=== PATIENT | female | born 1955 | race Caucasian/White ===

== ENCOUNTER 2019-10-27 05:52 | Day surgery (SDC) | payer OTHER ==
[~2019-10-27 05:52] MED LIST: DIPRIVAN 200 MG/20 ML IV ONE
[2019-10-27] MEDS ORDERED: Lactated Ringers 1,000 ML IV SCH (06:30)
--- NOTE | 2019-10-27 09:06 | OP ---
SURGERY DATE/TIME: 10/27/2019 0755 PREOPERATIVE DIAGNOSIS: Screening exam. POSTOPERATIVE DIAGNOSIS: Normal colon. PROCEDURE: Colonoscopy. SURGEON: Dr. Hernandez. ANESTHESIA: Medications given by anesthesia department. HISTORY: The patient is a 63 year old white female presenting now for her first screening colonoscopy. She was appraised of the risks of the procedure including the risk of perforation, phlebitis, untoward reaction to medication, bleeding and missed lesions. The patient verbalized her understanding and desired to have the procedure performed. DESCRIPTION OF PROCEDURE: The patient was given the medications by the anesthesia department. She had continuous pulse oximetry, ECG monitoring, intermittent blood pressure monitoring and tidal CO2 monitoring during the examination. She was placed in the left lateral decubitus position. A digital rectal examination was performed and revealed normal anal sphincter tone and no masses. The flexible Olympus pediatric colonoscope was used to intubate the rectum. A view of the colon was developed sequentially to the cecum. Upon insertion and withdrawal, including a retroflex view in the rectum, no mucosal lesions were encountered. The scope was removed from the patient who tolerated the procedure well and was sent back to OP recovery in good condition. The prep was noted to be fair to good with just occasional liquid stool noted in the right colon.
[2019-10-27 09:10] VITALS: O2SAT 97
[2019-10-27 09:12] VITALS: BP 92/56; PULSE 70
== END 2019-10-27 09:29 | disposition home or self-care (01) ==
LOC: SDC 05:52
PROVIDERS: ATTEND Family Medicine
DX: Z12.11 Encounter for screening for malignant neoplasm of colon (principal)
CPT/HCPCS: J2704

== ENCOUNTER 2021-07-02 13:35 | Day surgery (SDC) | payer OTHER ==
[2021-07-02] MEDS ORDERED: Marcaine Mpf 0.5% Vial 30 Ml IJ ONE (13:36)
[2021-07-02] MEDS ORDERED: Xylocaine 1% Vial 30 ML PF IJ ONE (13:36)
[2021-07-02] MEDS ORDERED: DIPRIVAN 200 MG/20 ML IV ONE (16:13)
[2021-07-02] MEDS ORDERED: Lactated Ringers 1,000 ML IV ONE (17:10)
--- NOTE | 2021-07-02 19:49 | XRAY ---
Indication: Left lumbar sympathetic nerve block. Intraoperative fluoroscopy provided for 19 seconds. 3 digital spot image submitted for interpretation demonstrates left posterior needle tip projecting just anterior to L2 segment. Small amount of contrast injected for needle tip placement. Correlate with intraoperative findings/report.
--- NOTE | 2021-07-03 08:46 | XRAY ---
19 seconds fluoroscopy time in surgery for left lumbar sympathetic nerve block.
== END 2021-07-02 16:25 | disposition home or self-care (01) ==
LOC: SDC-PAIN 13:35
PROVIDERS: ATTEND Psychiatry & Neurology Pain Medicine
DX: G90.522 Complex regional pain syndrome I of left lower limb (principal); Z79.899 Other long term (current) drug therapy
CPT/HCPCS: 01952; 64520; 72100; 77002; 77003; J2001; J2704; Q9966

== ENCOUNTER 2022-04-29 11:27 | Day surgery (SDC) | payer OTHER ==
[2022-04-29] MEDS ORDERED: LIDOCAINE HCL 1% 50 MG/5 ML VL PF IJ ONE (11:28)
[2022-04-29] MEDS ORDERED: Sensorcaine 0.25% 10 ML IJ ONE (11:28)
[2022-04-29] MEDS ORDERED: DIPRIVAN 200 MG/20 ML IV ONE (13:49)
[2022-04-29] MEDS ORDERED: Lactated Ringers 1,000 ML IV ONE (15:29)
--- NOTE | 2022-04-29 16:33 | XRAY ---
Indication: Left lumbar sympathetic nerve block. Intraoperative fluoroscopy provided for 28 seconds. 2 digital spot image submitted for interpretation demonstrates left posterior needle tip projecting just anterior to L3-L4 interspace. Small amount of contrast injected for needle tip placement. Correlate with intraoperative findings/report.
--- NOTE | 2022-04-29 16:49 | XRAY ---
28 seconds of fluoroscopy was used in surgery for a left lumbar sympathetic nerve block.
== END 2022-04-29 14:20 | disposition home or self-care (01) ==
LOC: SDC-PAIN 11:27
PROVIDERS: ATTEND Psychiatry & Neurology Pain Medicine
DX: G90.522 Complex regional pain syndrome I of left lower limb (principal); Z79.899 Other long term (current) drug therapy
CPT/HCPCS: 64520; 72100; 77002; J2001; J2704; Q9966

== ENCOUNTER 2023-01-14 10:15 | Day surgery (SDC) | payer OTHER ==
[2023-01-14] MEDS ORDERED: Sensorcaine 0.25% 10 ML IJ ONE (10:16)
[2023-01-14] MEDS ORDERED: XYLOCAINE-MPF 1% 5ML SDV IJ ONE (10:16)
[2023-01-14] MEDS ORDERED: DIPRIVAN 200 MG/20 ML IV ONE (11:20)
--- NOTE | 2023-01-14 12:34 | XRAY ---
Indication: Left lumbar sympathetic nerve block. Intraoperative fluoroscopy provided for 40 seconds. 5 digital spot image submitted for interpretation demonstrates left posterior needle tip projecting anterior to L2. Small amount of contrast injected for needle placement. Correlate with intraoperative findings/report.
[2023-01-14] MEDS ORDERED: Lactated Ringers 1,000 ML IV ONE (15:24)
--- NOTE | 2023-01-15 10:59 | XRAY ---
40 seconds of fluoroscopy was used in surgery for a left lumbar sympathetic nerve block.
== END 2023-01-14 11:55 | disposition home or self-care (01) ==
LOC: SDC-PAIN 10:15
PROVIDERS: ATTEND Psychiatry & Neurology Pain Medicine
DX: G90.522 Complex regional pain syndrome I of left lower limb (principal)
CPT/HCPCS: 64520; 72100; 77002; J2704; Q9966

== ENCOUNTER 2023-02-17 07:17 | Day surgery (SDC) | payer OTHER ==
[2023-02-17] MEDS ORDERED: XYLOCAINE-MPF 1% 5ML SDV IJ ONE (07:18)
[2023-02-17] MEDS ORDERED: Sensorcaine 0.25% 10 ML IJ ONE (07:18)
[2023-02-17] MEDS ORDERED: DIPRIVAN 200 MG/20 ML IV ONE (09:22)
[2023-02-17] MEDS ORDERED: Lactated Ringers 1,000 ML IV ONE (10:41)
--- NOTE | 2023-02-17 10:59 | XRAY ---
Indication: Left lumbar sympathetic nerve block. Intraoperative fluoroscopy provided for 1 minute 9 seconds. 4 digital spot images submitted for interpretation demonstrates left posterior needle tip projecting just anterior to L2. Small amount of contrast injected for needle tip placement. Correlate with intraoperative findings/report.
--- NOTE | 2023-02-17 12:32 | XRAY ---
One minute and 9 seconds of fluoroscopy was used in surgery for a left lumbar sympathetic nerve block.
== END 2023-02-17 09:58 | disposition home or self-care (01) ==
LOC: SDC-PAIN 07:17
PROVIDERS: ATTEND Psychiatry & Neurology Pain Medicine
DX: G90.522 Complex regional pain syndrome I of left lower limb (principal)
CPT/HCPCS: 64520; 72100; 77002; 77003; J2704; Q9966

== ENCOUNTER 2023-06-17 08:05 | Emergency (ER) | payer OTHER ==
[2023-06-17 08:19] VITALS: TEMP 97.2
--- NOTE | 2023-06-17 08:29 | ERPHSYRPT ---
- History of Present Illness Time Seen by Provider: 06/17/23 08:20 Patient Subjective Stated Complaint: PT states "I was just standing there and had a sudden burning in my chest and it went up into my neck." Triage Nursing Assessment: PT presented alert and oriented X 3, skin pwd. PT ambulates with an upright steady gait, able to speak in clear full sentences. PT resting comfortably on the bed. Physician History: 67 years old fairly healthy female presented in the ER with sudden onset substernal chest pain almost 15 minutes prior to arrival with radiation to the neck, dull aching to burning sensation without any significant aggravating or relieving factors and improved on its own after 10 minutes and currently having no symptoms. Patient reports having similar symptoms in the past which get better with taking Tums but never had pain in the neck/jaw area. No difficulty breathing. No recent fever or chills reported. Aspirin Treatment Today: unknown Allergies/Adverse Reactions: morphine Allergy (Severe, Verified 10/27/19 06:14) Shortness of Breath "thought i was dying, my resp. was so bad" codeine Allergy (Mild, Verified 10/27/19 06:14) Hives Home Medications: Desloratadine [Clarinex] 5 mg PO DAILY 10/18/19 [History] Famotidine 20 mg [Pepcid 20 MG] 20 mg PO DAILY 10/18/19 [History] Gabapentin [Neurontin] 300 mg PO TID 10/18/19 [History] Nortriptyline HCl [Pamelor] 10 mg PO HS 10/18/19 [History] Pantoprazole Sodium [Protonix] 40 mg PO DAILY 10/18/19 [History] Hx Tetanus, Diphtheria Vaccination/Date Given: No Hx Influenza Vaccination/Date Given: Yes Hx Pneumococcal Vaccination/Date Given: No Immunizations Up to Date: No Travel Risk - International Travel Have you traveled outside of the country in past 3 weeks: No - Emerging Infectious Disease Are you exhibiting symptoms associated with any current EIDs: No - Review of Systems Constitutional: No Symptoms Eyes: No Symptoms Ears, Nose, & Throat: No Symptoms Respiratory: No Symptoms Cardiac: Chest Pain Abdominal/Gastrointestinal: No Symptoms Genitourinary Symptoms: No Symptoms Musculoskeletal: No Symptoms Skin: No Symptoms Neurological: No Symptoms Psychological: No Symptoms Endocrine: No Symptoms Hematologic/Lymphatic: No Symptoms Immunological/Allergic: No Symptoms - Past Medical History Pertinent Past Medical History: Yes Neurological History: Peripheral Neuropathy, Other ENT History: No Pertinent History Cardiac History: No Pertinent History Respiratory History: No Pertinent History Endocrine Medical History: No Pertinent History Musculoskeletal History: No Pertinent History GI Medical History: GERD History: No Pertinent History Psycho-Social History: No Pertinent History Female Reproductive Disorders: No Pertinent History Other Medical History: Burning mouth disease. Burning foot disease - Past Surgical History Past Surgical History: Yes Neuro Surgical History: No Pertinent History Cardiac: No Pertinent History Respiratory: No Pertinent History Gastrointestinal: No Pertinent History Genitourinary: No Pertinent History Musculoskeletal: No Pertinent History Female Surgical History: Other Other Surgical History: ovary removed - Social History Smoking Status: Never smoker Exposure to second hand smoke: No Drug Use: none - Nursing Vital Signs Nursing Vital Signs: Initial Vital Signs Temperature 97.2 F 06/17/23 08:13 Pulse Rate 78 06/17/23 08:13 Respiratory Rate 20 06/17/23 08:13 Blood Pressure 158/98 06/17/23 08:13 O2 Sat by Pulse Oximetry 100 06/17/23 08:13 Pain Scale Pain Intensity 0 - Physical Exam General Appearance: no apparent distress, alert Eye Exam: PERRL/EOMI Ears, Nose, Throat Exam: normal ENT inspection, TMs normal, pharynx normal, moist mucous membranes Neck Exam: normal inspection, non-tender, supple, full range of motion Respiratory Exam: normal breath sounds, lungs clear, No chest tenderness Cardiovascular Exam: regular rate/rhythm, normal heart sounds Gastrointestinal/Abdomen Exam: soft, normal bowel sounds, No tenderness Back Exam: normal inspection, normal range of motion Extremity Exam: normal inspection, normal range of motion Neurologic Exam: alert, oriented x 3, cooperative, director industrial II-XII nml as tested Skin Exam: normal color SpO2 Interpretation: normal SpO2: 100 O2 Delivery: Room Air - Course EKG Interpreted by Me: RATE (79), Sinus Rhythm, Left [place] Deviation, LAFB, NORMAL INTERVALS Ordered Tests: Active Orders 24 hr Category Date Time Status Channel Process Plant Operator STAT Care 06/17/23 08:28 Completed EKG-ER Only STAT Care 06/17/23 08:28 Completed IV Insertion STAT Care 06/17/23 08:28 Completed CHEST 1 VIEW (PORTABLE) Stat Exams 06/17/23 08:28 Completed CBC W DIFF Stat Lab 06/17/23 08:36 Completed CMP Stat Lab 06/17/23 08:36 Completed D-DIMER QUANTITATIVE Stat Lab 06/17/23 08:36 Completed NT PRO BNPII Stat Lab 06/17/23 08:36 Completed TROPONIN Q4H Lab 06/17/23 08:36 Completed TROPONIN Q4H Lab 06/17/23 10:35 Completed Medication Summary Discontinued Medications Generic Name Dose Route Start Last Admin Trade Name Davidq PRN Reason Stop Dose Admin Aspirin 324 mg 06/17/23 08:28 06/17/23 08:45 Aspirin 81 Mg Tab.Chew PO 06/17/23 08:29 324 mg STAT ONE Administration Aspirin Confirm 06/17/23 08:43 Aspirin 81 Mg Tab.Chew Administered 06/17/23 08:44 Dose 324 mg .ROUTE .STSocMetrics-MED ONE Lab/Rad Data: Laboratory Result Diagrams 06/17/23 08:36 06/17/23 08:36 Laboratory Results 06/17/23 06/17/23 06/17/23 Range/Units 10:35 08:36 08:36 WBC (4.0-10.5) x10^3/uL RBC (4.1-5.4) x10^6/uL Hgb (12.0-16.0) g/dL Hct (35-47) % MCV (78-100) fL MCH (26-32) pg MCHC (32-36) g/dL RDW (11.5-14.0) % Plt Count (150-450) x10^3/uL MPV (7.5-11.0) fL Gran % (36.0-66.0) % Immature Gran % (Auto) (0.00-0.4) % Nucleat RBC Rel Count (0.00-0.1) % Eos # (Auto) (0-0.5) x10^3/uL Immature Gran # (Auto) (0.00-0.03) x10^3u/L Absolute Lymphs (auto) (1.0-4.6) x10^3/uL Absolute Monos (auto) (0.0-1.3) x10^3/uL Absolute Nucleated RBC (0.00-0.01) x10^3u/L Lymphocytes % (24.0-44.0) % Monocytes % (0.0-12.0) % Eosinophils % (0.00-5.0) % Basophils % (0.0-0.4) % Absolute Granulocytes (1.4-6.9) x10^3/uL Basophils # (0-0.4) x10^3/uL D-Dimer 0.33 (0.0-0.50) mg/L Sodium (135-145) mmol/L Potassium (3.5-5.1) mmol/L Chloride (98-107) mmol/L Carbon Dioxide (22-30) mmol/L Anion Gap (5-15) MEQ/L BUN (7-17) mg/dL Creatinine (0.52-1.04) mg/dL Estimated GFR ML/MIN Glucose (74-106) mg/dL Calcium (8.4-10.2) mg/dL Total Bilirubin (0.2-1.3) mg/dL AST (14-36) U/L ALT (0-35) U/L Alkaline Phosphatase (38-126) U/L Troponin I < 0.012 < 0.012 (0.000-0.033) ng/mL NT-Pro-B Natriuret Pep < 20.0 (<300) pg/mL Serum Total Protein (6.3-8.2) g/dL Albumin (3.5-5.0) g/dL 06/17/23 06/17/23 Range/Units 08:36 08:36 WBC 6.9 (4.0-10.5) x10^3/uL RBC 4.44 (4.1-5.4) x10^6/uL Hgb 11.2 L (12.0-16.0) g/dL Hct 35.9 (35-47) % MCV 80.9 (78-100) fL MCH 25.2 L (26-32) pg MCHC 31.2 L (32-36) g/dL RDW 19.5 H (11.5-14.0) % Plt Count 341 (150-450) x10^3/uL MPV 9.6 (7.5-11.0) fL Gran % 49.6 (36.0-66.0) % Immature Gran % (Auto) 0.1 (0.00-0.4) % Nucleat RBC Rel Count 0.0 (0.00-0.1) % Eos # (Auto) 0.21 (0-0.5) x10^3/uL Immature Gran # (Auto) 0.01 (0.00-0.03) x10^3u/L Absolute Lymphs (auto) 2.55 (1.0-4.6) x10^3/uL Absolute Monos (auto) 0.66 (0.0-1.3) x10^3/uL Absolute Nucleated RBC 0.00 (0.00-0.01) x10^3u/L Lymphocytes % 37.2 (24.0-44.0) % Monocytes % 9.6 (0.0-12.0) % Eosinophils % 3.1 (0.00-5.0) % Basophils % 0.4 (0.0-0.4) % Absolute Granulocytes 3.39 (1.4-6.9) x10^3/uL Basophils # 0.03 (0-0.4) x10^3/uL D-Dimer (0.0-0.50) mg/L Sodium 140 (135-145) mmol/L Potassium 4.0 (3.5-5.1) mmol/L Chloride 105 (98-107) mmol/L Carbon Dioxide 28 (22-30) mmol/L Anion Gap 11.2 (5-15) MEQ/L BUN 15 (7-17) mg/dL Creatinine 0.95 (0.52-1.04) mg/dL Estimated GFR 66.1 ML/MIN Glucose 108 H (74-106) mg/dL Calcium 9.5 (8.4-10.2) mg/dL Total Bilirubin 0.40 (0.2-1.3) mg/dL AST 30 (14-36) U/L ALT 20 (0-35) U/L Alkaline Phosphatase 68 (38-126) U/L Troponin I (0.000-0.033) ng/mL NT-Pro-B Natriuret Pep (<300) pg/mL Serum Total Protein 7.9 (6.3-8.2) g/dL Albumin 4.8 (3.5-5.0) g/dL - Progress Progress: improved, re-examined Air Movement: good Progress Note: 06/17/23 11:37 67 years old is evaluated for chest pain for 10 minutes in the substernal area with some radiation to the neck/jaw which improved prior to arrival in the ER. Patient remained chest pain-free throughout her stay in the ER. EKG is normal sinus rhythm with no acute ischemic changes. She has negative troponins x 2. Negative D-dimers. Chest x-ray negative for any acute cardiopulmonary findings. I have shared the results of workup with patient. She is low heart score, recommended outpatient cardiology follow-up. Do not think patient needs to be admitted. Discussed signs symptoms of worsening needing return to ER which she seems understanding. Blood Culture(s) Obtained: No Antibiotics given: No Counseled pt/family regarding: lab results, diagnosis, need for follow-up, rad results Medical Desision Making - Diagnostic Testing Diagnostic test were ordered, analyzed, and reviewed by me: Yes Radiological Interpretation: Reviewed by me - Departure Departure Disposition: Home Clinical Impression: Atypical chest pain Condition: Stable Critical Care Time: No Referrals: ALONDRA LANG NP [Primary Care Provider] - Follow up with PCP 1 day CATHY MALHOTRA [CONSULTING PHYSICIAN] - Follow up/PCP as directed (Call for appointment) Instructions: Angina (DC), Chest Pain (DC) Additional Instructions: Follow-up with primary care and cardiology for reevaluation. Return to ER for recurrent chest pain/worsening of symptoms or if having palpitations/shortness of breath etc.
[2023-06-17 08:39] LABS: Absolute Neutrophil Ct (ANC) 3.39 x10^3/uL (1.4-6.9); BASOPHIL % 0.4 % (0.0-0.4); Basophil (Absolute #) 0.03 x10^3/uL (0-0.4); Eosinophil % 3.1 % (0.00-5.0); Eosinophil (Absolute #) 0.21 x10^3/uL (0-0.5); Hematocrit 35.9 % (35-47); Hemoglobin 11.2 g/dL (12.0-16.0); IMMATURE GRAN # 0.01 x10^3u/L (0.00-0.03); IMMATURE GRAN % 0.1 % (0.00-0.4); Lymphocyte (Absolute #) 2.55 x10^3/uL (1.0-4.6); Lymphocytes % 37.2 % (24.0-44.0); Mean Cell Volume 80.9 fL (78-100); Mean Corpuscular Hemoglobin 25.2 pg (26-32); Mean Corpuscular Hgb Concent. 31.2 g/dL (32-36); Mean Platelet Volume 9.6 fL (7.5-11.0); Monocyte (Absolute #) 0.66 x10^3/uL (0.0-1.3); Monocytes % 9.6 % (0.0-12.0); Neutrophil % 49.6 % (36.0-66.0); Platelet Count 341 x10^3/uL (150-450); Red Blood Count 4.44 x10^6/uL (4.1-5.4); Red Cell Distribution Width 19.5 % (11.5-14.0); White Blood Count 6.9 x10^3/uL (4.0-10.5)
[2023-06-17] MEDS ORDERED: BABY ASPIRIN 81 MG CHEW ONE (08:43)
[2023-06-17 08:44] LABS: ALBUMIN 4.8 g/dL (3.5-5.0); ANION GAP 11.2 MEQ/L (5-15); BILIRUBIN,TOTAL 0.4 mg/dL (0.2-1.3); Calcium 9.5 mg/dL (8.4-10.2); Creatinine 1 0.95 mg/dL (0.52-1.04); EST GLOMERULAR FILTRATION RATE 66.1 ML/MIN; Total Protein 7.9 g/dL (6.3-8.2)
[2023-06-17] MEDS: BABY ASPIRIN 81 MG CHEW PO ONE (08:45)
[2023-06-17 08:56] LABS: NT PRO BNPII < 20.0 pg/mL (<300); TROPONIN < 0.012 ng/mL (0.000-0.033)
--- NOTE | 2023-06-17 09:19 | XRAY ---
Indication: Chest pain. Comparison: None Portable chest demonstrates normal heart and lungs with incidental tiny right apical calcified granuloma. Bony thorax intact.
[2023-06-17 11:54] VITALS: BP 122/76; PULSE 72; RESP 18
[2023-06-17 22:31] VITALS: O2SAT 100
== END 2023-06-17 11:54 | disposition home or self-care (01) ==
LOC: ED 08:05
DX: R07.9 Chest pain, unspecified (principal); Z79.899 Other long term (current) drug therapy
CPT/HCPCS: 36000; 36415; 71045; 80053; 83880; 84484; 85025; 85379; 93005; 93041; 99284; A9270-GY

== ENCOUNTER 2024-04-12 06:44 | Day surgery (SDC) | payer OTHER ==
[2024-04-12] MEDS ORDERED: LIDOCAINE HCL 1% 50 MG/5 ML VL IJ ONE (06:45)
[2024-04-12] MEDS ORDERED: BUPIVACAINE 0.5% VIAL IJ ONE (06:45)
[2024-04-12] MEDS ORDERED: Lactated Ringers 500 ML IV ONE (07:35)
[2024-04-12] MEDS ORDERED: propofoL IV ONE (08:17)
--- NOTE | 2024-04-12 10:36 | XRAY ---
Indication: Left lumbar sympathetic nerve block. Intraoperative fluoroscopy provided for 1 minute 5 seconds. 4 digital spot image submitted for interpretation demonstrates left posterior needle tip projecting anterior to L2 vertebral body. Small amount of contrast injected for needle tip placement. Correlate with intraoperative findings/report.
--- NOTE | 2024-04-12 10:38 | XRAY ---
One minute and 5 seconds of fluoroscopy was used in surgery for a left lumbar sympathetic nerve block.
== END 2024-04-12 08:41 | disposition home or self-care (01) ==
LOC: SDC-PAIN 06:44
PROVIDERS: ATTEND Psychiatry & Neurology Pain Medicine
DX: G90.522 Complex regional pain syndrome I of left lower limb (principal); R73.03 Prediabetes
CPT/HCPCS: 64520; 72100; 77002; 77003; 82947; J2704; Q9966

== ENCOUNTER 2025-01-02 10:32 | Day surgery (SDC) | payer OTHER ==
[~2025-01-02 10:32] MED LIST changes: +BETADINE 5% OPHTHALMIC 30 ML OP NR; +DEXMEDETOMIDINE 80 MCG/20ML-NS IV NR; -DIPRIVAN 200 MG/20 ML IV ONE; +Epinephrine Preservative Free 1 MG/ML INTRAOP NR; +TRIAMCINOLONE 15 MG/ML INJ INTRAOP NR; +VIGAMOX/BSS 0.15% SYR IO NR; +Zofran 4 MG/2 ML VIAL IV PRN
[2025-01-02] MEDS ORDERED: Lactated Ringers 1,000 ML IV ONE (10:41)
[2025-01-02] MEDS: TETRACAINE 0.5% STERI-UNIT SOL OP ONE ×2 (10:50)
[2025-01-02] MEDS: Lactated Ringers 1,000 ML IV SCH (10:50)
[2025-01-02] MEDS: Ak-Dilate OPHTHALMIC*** 0.71 ML, Cyclogyl 1% OPHTH SOL 0.71 ML, GATIFLOXACIN 0.5% OPHTH... OP SCH (10:50)
[2025-01-02] MEDS ORDERED: propofoL IV ONE (13:36)
[2025-01-02 14:00] VITALS: RESP 16
[2025-01-02] MEDS: ACETAZOLAMIDE 250 MG TABLET PO ONE (14:02)
[2025-01-02 14:07] VITALS: O2SAT 99
[2025-01-02 14:11] VITALS: BP 136/86; PULSE 69; TEMP 97.2
== END 2025-01-02 14:25 | disposition home or self-care (01) ==
LOC: SDC 10:32
PROVIDERS: ATTEND Ophthalmology
DX: H25.811 Combined forms of age-related cataract, right eye (principal)